=== PATIENT | female | born 1945 | race Caucasian/White ===

== ENCOUNTER 2024-12-06 20:24 | Emergency (ER) | payer OTHER, SELFPAY ==
[2024-12-06] VITALS (9 sets, daily range): BP systolic 176–223; BP diastolic 78–97; PULSE 74–86; RESP 16–21; TEMP 36.7; O2SAT 96–98; BMI 41.0
--- NOTE | 2024-12-06 20:39 | DI.RAD.S_ITS ---
PROCEDURE: XR CHEST 1V INDICATIONS: Chest Pain TECHNIQUE: One view of the chest was acquired. COMPARISON: None. FINDINGS: Surgical changes and devices: None. Lungs and pleura: Lungs are clear. No pleural effusions or pneumothorax. Mediastinum: Mediastinal contours appear normal. Heart size is normal. Bones and chest wall: No suspicious bony lesions. Overlying soft tissues appear unremarkable. IMPRESSION: No acute pulmonary process. Dictated by: Courtney Mera M.D. on 12/06/2024 at 21:07 Approved by: Courtney Mera M.D. on 12/06/2024 at 21:08
--- NOTE | 2024-12-06 20:47 | EKG_ITS ---
[facility] [address] [place] [address] Test Date: 2024-12-06 Pat Name: Yaritza Espinoza Department: [facility] Room: Gender: Female [employer] Forms: LUDMILA : 1945 Requested By: Order Number: [id number] Reading MD: Leif Downing MD Measurements Intervals [place] Rate: 74 P: 43 TX: 130 QRS: -9 QRSD: 70 T: 21 QT: 372 QTc: 412 Interpretive Statements Normal sinus rhythm Moderate voltage criteria for LVH, may be normal variant ( R in aVL , [place] product ) Inferior infarct , age undetermined Electronically Signed On 12-07-2024 6:37:35 PDT by Leif Downing MD
[2024-12-06 21:05] LABS: Add Manual Diff / Slide Review NO; Basophils Absolute Auto 100 /uL (0-100); Basophils Percent Auto 0.9 % (0-2); Eosinophils Absolute Auto 100 /uL (0-450); Eosinophils Percent Auto 0.7 % (2-4); Hematocrit 37.7 % (36-46); Hemoglobin 12.7 g/dL (12.0-16.0); Lymphocytes Absolute Auto 2600 /uL (1100-4500); Lymphocytes Percent Auto 34.1 % (25-40); Mean Corpuscular HGB Conc 33.6 % (30-36); Mean Corpuscular Hemoglobin 31.7 PG (26-34); Mean Corpuscular Volume 94.4 fL (80-100); Monocytes Absolute Auto 600 /uL (0-900); Monocytes Percent Auto 7.3 % (3-14); Neutrophils Absolute Auto 4400 /uL (1500-7000); Platelet Count 242 X10^3/uL (150-400); Red Blood Cell Count 3.99 X10^6/uL (4.0-5.2); Red Cell Distribution Width 13.8 % (11.6-14.8); White Blood Cell Count 7.8 X10^3/uL (4.5-11.0)
[2024-12-06 21:11] LABS: Prothrombin Time 10.8 SECONDS (9.4-12.5)
[2024-12-06 21:13] LABS: PTT Partial Thromboplastin Tim 34 SECONDS (25.1-36.5)
[2024-12-06 21:18] LABS: Alanine Aminotransferase 17 IU/L (<35); Albumin Globulin Ratio 1.3 (1.0-2.8); Alkaline Phosphatase 71 U/L (38-126); Aspartate Aminotransferase 24 IU/L (14-36); BUN Creatinine Ratio 27.8 (6-22); Bilirubin Total 0.3 mg/dL (0.2-1.3); Blood Urea Nitrogen 22 mg/dL (7-17); Calcium 9.1 mg/dL (8.4-10.2); Carbon Dioxide 29 mmol/L (22-32); Chloride 103 mmol/L (98-107); Creatine Kinase 38 U/L (30-135); Estimated Glomerular Filt Rate > 60 mL/min (>60); Globulin 3.1 g/dL (1.7-4.1); Glucose 94 mg/dL (70-99); HEMOLYSIS 21 (0-50); Lipase 218 U/L (23-300); Magnesium 1.9 mg/dL (1.6-2.3); Potassium 4.5 mmol/L (3.4-5.1); Sodium 136 mmol/L (137-145); Total Protein 7.1 g/dL (6.3-8.2)
[2024-12-06 21:29] LABS: NT-proBNP (BNP-Adult 18+) 136 pg/mL (<450); Troponin I < 0.012 ng/mL (0.01-0.034)
--- NOTE | 2024-12-06 21:56 | ED_ITS ---
HPI - General Adult General Chief complaint: Hypertension Stated complaint: HBP x5days Time Seen by Provider: 12/06/24 20:29 Source: patient and family Mode of arrival: Ambulatory History of Present Illness HPI narrative: 79-year-old female with history of dementia, prior blood pressure elevation with prescription losartan 25 mg was advised 1 year ago by PCP, but blood pressures at home not elevated, this was never actually started, however the last few days at home daughter has measured elevated blood pressures, systolic blood pressure 208-170 range. No chest pain or trouble breathing. No fevers or chills. Currently not on any blood pressure medication. Daughter seems interested in having patient start that or different blood pressure medicine now. They are the same primary care provider. Related Data Previous Rx's ?Medication ?Instructions ?Recorded losartan 25 mg tablet 25 mg PO DAILY #30 tabs 11/14 10/07 Allergies Allergy/AdvReac Type Severity Reaction Status Date / Time No Known Drug Allergies Allergy Verified 12/06/24 20:28 Patient History Surgical History (Updated 02/21/19 @ 22:10 by Jacquie Greco) Anesthesia Tumor History of lumpectomy Status post hysterectomy Family History (Updated 02/21/19 @ 22:12 by Jacquie Greco) Father History of heart disease Mother Stroke Grandfather History of heart disease Grandmother Diabetes mellitus Social History Smoking Status: Never smoker Smoking Status: Never smoker Exam Narrative Exam Narrative: GENERAL: Well-developed patient, in mild distress. HEAD: Atraumatic. Normocephalic. EYES: Pupils equal round and reactive. Extraocular motions intact. No scleral icterus. No injection or drainage. ENT: Nose without bleeding, purulent drainage. Throat without erythema, tonsillar hypertrophy or exudate. Airway patent. NECK: Trachea midline. Non tender CARDIOVASCULAR: Regular rate and rhythm without murmurs, gallops, or rubs. RESPIRATORY: Clear to auscultation. Breath sounds equal bilaterally. No wheezes, rales, or rhonchi. GASTROINTESTINAL: Abdomen soft, non-tender, nondistended. EXTREMITIES: No edema or joint tenderness. BACK: Nontender without deformity or crepitance. No flank tenderness. NEURO: AOx3. Motor functions grossly nonfocal SKIN: No rash or erythema of visible areas Initial Vital Signs Initial Vital Signs: Vital Signs Temperature 98.1 F 12/06/24 20:28 Pulse Rate 82 06/24/25 20:28 Respiratory Rate 18 12/06/24 20:28 Blood Pressure 201/87 H 12/06/24 20:28 Pulse Oximetry 98 12/06/24 20:28 Oxygen Delivery Method Room Air 12/06/24 20:28 Course Orders Ordered: Discontinued Medications Aspirin (Aspirin 81 Mg Chew Tab) 324 mg PO NOW ONE Stop: 12/06/24 20:40 Losartan Potassium (Losartan 25 Mg Tablet) 25 mg PO NOW ONE Stop: 12/06/24 22:00 Last Admin: 12/06/24 22:12 Dose: 25 mg Documented By: SERENE Vital Signs Vital signs: Vital Signs - 8 hr 12/06/24 20:28 12/06/24 20:35 12/06/24 20:35 Temperature 98.1 F Pulse Rate 82 79 Respiratory Rate 18 Blood Pressure 201/87 H 218/95 H Pulse Oximetry 98 97 Oxygen Delivery Method Room Air 12/06/24 21:00 12/06/24 21:00 12/06/24 21:30 Temperature Pulse Rate 80 74 Respiratory Rate 18 17 Blood Pressure 215/93 H Pulse Oximetry 98 96 Oxygen Delivery Method Room Air 12/06/24 21:30 Temperature Pulse Rate Respiratory Rate Blood Pressure 176/78 H Pulse Oximetry Oxygen Delivery Method Medical Decision Making Lab Data Lab results narrative: White blood cell count 7800, hemoglobin 12.7, platelets adequate. Glucose 94. BUN 22 with creatinine 0.79 normal renal function. Serum CO2 29. Sodium 136, with potassium 4.5. Liver functions normal. Lipase normal. Troponin negative/unmeasurable. 12/06/24 20:50 12/06/24 20:50 Labs: Lab Results 12/06/24 Range/Units 20:50 WBC 7.8 (4.5-11.0) X10^3/uL RBC 3.99 L (4.0-5.2) X10^6/uL Hgb 12.7 (12.0-16.0) g/dL Hct 37.7 (36-46) % MCV 94.4 (80-100) fL MCH 31.7 (26-34) PG MCHC 33.6 (30-36) % RDW 13.8 (11.6-14.8) % Plt Count 242 (150-400) X10^3/uL Neut % (Auto) 57.0 (50-75) % Lymph % (Auto) 34.1 (25-40) % [place] % (Auto) 7.3 (3-14) % Eos % (Auto) 0.7 L (2-4) % Baso % (Auto) 0.9 (0-2) % Neut # (Auto) 4400 (3221-7608) /uL Lymph # (Auto) 2600 (1756-1838) /uL [place] # (Auto) 600 (0-900) /uL Eos # (Auto) 100 (0-450) /uL Baso # (Auto) 100 (0-100) /uL PT 10.8 (9.4-12.5) SECONDS INR 1.0 (0.9-1.3) APTT 34 (25.1-36.5) SECONDS Sodium 136 L (137-145) mmol/L Potassium 4.5 (3.4-5.1) mmol/L Chloride 103 (98-107) mmol/L Carbon Dioxide 29 (22-32) mmol/L BUN 22 H (7-17) mg/dL Creatinine 0.79 (0.52-1.04) mg/dL Estimated GFR > 60 (>60) mL/min BUN/Creatinine Ratio 27.8 H (6-22) Glucose 94 (70-99) mg/dL Calcium 9.1 (8.4-10.2) mg/dL Magnesium 1.9 (1.6-2.3) mg/dL Total Bilirubin 0.3 (0.2-1.3) mg/dL AST 24 (14-36) IU/L ALT 17 (<35) IU/L Alkaline Phosphatase 71 (38-126) U/L Total Creatine Kinase 38 (30-135) U/L Troponin I < 0.012 (0.01-0.034) ng/mL NT-Pro-B Natriuret Pep 136 (<450) pg/mL Total Protein 7.1 (6.3-8.2) g/dL Albumin 4.0 (3.5-5.0) g/dL Globulin 3.1 (1.7-4.1) g/dL Albumin/Globulin Ratio 1.3 (1.0-2.8) Lipase 218 (23-300) U/L Imaging Data Chest x-ray: Radiologist's Impression: Close Chest X-Ray (Signed) Courtney Mera - 12/06/24 Launch?[address] [address] XRay Report Signed Patient: Yaritza Espionza MR#: [id number] : 1945 Acct:[id number] Age/Sex: 79 / F Date of Service: 12/06/24 Loc: ED Accession Number: [id number] Procedure: XR chest 1V Ordering Provider: Gaurav Bazzi MD PROCEDURE: XR CHEST 1V INDICATIONS: Chest Pain TECHNIQUE: One view of the chest was acquired. COMPARISON: None. FINDINGS: Surgical changes and devices: None. Lungs and pleura: Lungs are clear. No pleural effusions or pneumothorax. Mediastinum: Mediastinal contours appear normal. Heart size is normal. Bones and chest wall: No suspicious bony lesions. Overlying soft tissues appear unremarkable. IMPRESSION: No acute pulmonary process. Dictated by: Courtney Mera M.D. on 12/06/2024 at 21:07 Approved by: Courtney Mera M.D. on 12/06/2024 at 21:08 ECG Data Attestation: I personally reviewed and interpreted this ECG as follows: Interpretation: Normal sinus rhythm with rate of 74, no obvious ST segment elevation or depression changes. [place] 130, QRS 70, QTC 412. MDM Narrative Medical decision making narrative: 79-year-old female with history of elevated blood pressures in the past was offered losartan but not filled, had seemed to be doing okay with blood pressure control until recent days, repeated home blood pressure measurements elevated. Daughter we would like patient who has history of dementia to be restarted on blood pressure medications, we would like refill of the losartan medication. Screening labs pending to check creatinine and potassium. Chest x-ray unremarkable, see radiology report. EKG without obvious ischemic changes. Lab data: White blood cell count 7800, hemoglobin 12.7, platelets adequate. Glucose 94. BUN 22 with creatinine 0.79 normal renal function. Serum CO2 29. Sodium 136, with potassium 4.5. Liver functions normal. Lipase normal. Troponin negative/unmeasurable. Screening labs are reassuring. We will send prescription for losartan 25 mg daily, 1st dose now, prescription sent to her pharmacy. Further follow up with your primary care provider for titration of blood pressure control medications. Discharged home with family. Return precautions discussed. Discharge Plan Departure Patient Disposition: Home Clinical Impression: Hypertension Activity Restrictions/Additional Instructions: History of dementia. Elevated blood pressure readings in the past prompting a prescription for losartan 25 mg daily about 1 year ago that was not filled. Blood pressure seemed to be reasonable until recent days. Home blood pressure readings elevated, systolic blood pressure 208 to 170s noted multiple readings over multiple days. There is interest to consider restarting blood pressure medication. Renal function and potassium today was measured and normal. It is reasonable to consider losartan in the setting, we will give dose of 25 mg now, and prescription sent for 25 mg daily. Recheck with your regular doctor next week to make sure the potassium and kidney function is staying stable on this new medication. And also to titrate further blood pressure control doses as needed in follow up. Return earlier for any change worsening symptoms or concerns prior. Prescriptions: New losartan 25 mg tablet 25 mg PO DAILY Qty: 30 0RF Referrals: Mary Guerrero ARNP [Primary Care Provider, Family Practice] Stand Alone Forms: Patient Portal/API
[2024-12-06] MEDS: LOSARTAN 25 MG TABLET PO (22:12)
== END 2024-12-06 22:37 | disposition home or self-care (01) ==
PROVIDERS: Emergency Provider Emergency Medicine; PCP Nurse Practitioner
DX: I10 Essential (primary) hypertension (principal); F03.90 Unspecified dementia, unspecified severity, without behavioral disturbance, psychotic disturbance, mood disturbance, and anxiety
CPT/HCPCS: 36415; 71045; 80053; 82550; 83690; 83735; 83880; 84484; 85025; 85610; 85730; 93005; 93010; 99284